=== PATIENT | female | born 1935 | race Caucasian/White ===

== ENCOUNTER 2017-03-08 17:03 | Emergency (ER) | payer MEDICARE, OTHER ==
[2017-03-08 20:16] LABS: HEMOGLOBIN 11.2 gm/dl (12.3-15.3); RED BLOOD COUNT 4.13 M/UL (4.00-5.10); WHITE BLOOD COUNT 8.2 K/UL (4.5-11.0)
== END 2017-03-08 22:45 | disposition home or self-care (01) ==
LOC: ER1 17:03
PROVIDERS: Family Medicine
DX: N39.0 Urinary tract infection, site not specified (principal); E11.9 Type 2 diabetes mellitus without complications; I48.91 Unspecified atrial fibrillation
CPT/HCPCS: 36415; 70220; 71020; 80053; 81001; 85025; 93005; 96372; 99284; J0696